=== PATIENT | male | born 1950 | race Caucasian/White ===

== ENCOUNTER 2016-04-28 16:00 | Inpatient (IN) | payer MEDICARE, OTHER ==
[~2016-04-28] VITALS: Ht 175.3 cm; Wt 70.7 kg
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
[~2016-04-28 16:00] MED LIST: APRESOLINE50 MG PO; CATAPRES0.1 MG PO; FEOSOL325 MG PO; FOLIC ACID1 MG PO; GLUCOTROL5 MG PO; LEVEMIR FL100 UNIT/1 SUB-Q; MAG-OX-400(241400 MG PO; NORVASC10 MG PO; NOVOLOG100 UNIT/M SUB-Q; PRILOSEC20 MG PO; THERAGRAN-M1 TAB PO; THIAMINE HCL100 MG PO; TRANDATE OR NO100 MG PO; TYLENOL325 MG PO; WELLBUTRIN SR150 MG PO; ZESTRIL40 MG PO; ZOCOR10 MG PO; ZOLOFT100 MG PO
[2016-04-28 18:23] LABS: BASOPHIL % 0.4 %; EOSINOPHIL # 0.3 K/uL (0.0-0.5); EOSINOPHIL % 3.1 %; HEMATOCRIT 43.5 % (37.0-53.0); HEMOGLOBIN 14.6 g/dL (11.0-16.0); IMMATURE GRANULOCYTE % 0.4 %; LYMPHOCYTE # 2.4 K/uL (0.8-4.0); MCH 34.7 pg (27.0-34.0); MCHC 33.6 gm/dL (32.0-36.5); MCV 103.3 fl (83.0-98.0); MONOCYTE # 0.9 K/uL (0.0-1.0); MONOCYTE % 9.3 %; NEUTROPHIL # (ANC) 5.5 K/uL (1.4-9.0); NEUTROPHIL % 60.8 %; NRBC % 0 /100WBC (0-0.00); RBC 4.21 M/uL (3.50-5.50); RDW-CV 12.8 % (11.9-14.6); WBC 9.1 K/uL (4.0-11.0)
[2016-04-28 18:25] LABS: PLATELET COUNT 262 K/uL (150-450)
[2016-04-28 18:36] LABS: PROTIME 10.2 SECONDS (9.6-11.1); PTT 27 SECONDS (25-32)
[2016-04-28 18:40] LABS: ALBUMIN 3.6 gm/dL (3.5-5.0); ALK PHOS 144 IU/L (33-138); ALT 37 IU/L (12-78); ANION GAP 14.8 (10.0-19.0); AST 21 IU/L (10-40); BLOOD UREA NITROGEN 17 mg/dL (6-24); CHLORIDE 103 mMol/L (96-110); CO2 24 mMol/L (22-32); ESTIMATED GFR (MDRD EQUATION) > 60; POTASSIUM 3.8 mMol/L (3.7-5.1); SODIUM 138 mMol/L (135-145); TOTAL PROTEIN 7.8 g/dL (6.0-8.4)
[2016-04-28 18:41] LABS: TOTAL BILIRUBIN 0.4 mg/dL (0.0-1.5)
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
--- NOTE | 2016-04-29 04:36 | NUR ---
Significant Event: Alert to self and . Disoriented to place and time. Moves all extremities spontaneously and to command. Left leg pain and weakness noted with movement. Upper extremitity moderate equal strength. Rates pain in 4-/6-7 range. Offered tylenol, patient declined multiple times. VSS on 1L of O2. Up 1 assist with gait belt. Takes meds whole. IV to right wrist saline locked. NPO at 5am for lumbar drain at 11am. IV fluids to start at 0500 this morning. Follow up:
--- NOTE | 2016-04-29 15:22 | NUR ---
Significant Event: PT ALERT TO SELF/BIRTHDAY. PERRLA. FOLLOWS COMMANDS. EQUAL STRENGTH X4. TRANSFERS WITH 1-2 ASSIST. COMPLAINS TO PAIN TO L)KNEE AT TIMES; HAS DENIED ANY NEED FOR PAIN MEDICATIONS THIS SHIFT. VOIDS PER BATHROOM. NO BM THIS SHIFT. AC/HS ACCUCHECKS WITH MILD SLIDING SCALE. BILATERAL CALF PUMPS ON. TAKES MEDICATIONS WHOLE IN WATER. IV TO R)WRIST INFUSING FLUIDS WITHOUT COMPLICATIONS. PLACED A LUMBAR DRAIN AT BEDSIDE AT 1130. DRESSING TO BACK INTACT; GOAL IS TO DRAIN 7 ML PER HOUR-KEEP SYSTEM CLAMPED UNLESS EMPTYING DRAIN. DRAINAGE IS CLEAR. IV ATIVAN GIVEN X1 PRIOR TO PROCEDURE THIS AM. NICOTINE PATCH APPLIED TO 1320 TO L)UPPER ARM. PT'S EX- LEFT THIS AFTERNOON. Follow up: CONTINUE TO MONITOR.
--- NOTE | 2016-04-30 05:03 | NUR ---
Significant Event: Patient alert to self and at all times. Patient alert to time and disoriented to place first and third assessment. Patient alert to place and dioriented to time second assessment. Denies numbness and tingling. Moves all extremities spontaneously and to command. Transfers 1-2 assist with gait belt. Complains of pain to left knee at times. Voids per bathroom. No BMs this shift. ACHS accuchecks mild sliding scale. Takes medications whole. IV to right wrist infusing NS at 75/hr. Dressing to back intact. Lumbar drain goal was increased to 10ml/hr. At 0230 patient got sudden headache. Blood pressure was also increased. Tylenol given with no relief. Dr. Whitfield notified and clamped lumbar drain. Order CT this am and diluadid for pain relief. Follow up: CT this am.
--- NOTE | 2016-04-30 18:01 | NUR ---
Significant Event: Alert and more oriented this shift. Room Air. SBP 150's and 170's. HR 60's & 70's. Pulled out lumbar drain this am. removed drain and scheduled surgery for a shunt tomorrow morning at 1100. CT scan tomorrow at 0400. Right wrist IV, flushes well, saline locked. Complaints of headache, dilaudid given X 2, last given at 1403. Headache gone now complains of a stiff neck. ACHS accu checks 232, 298 and 293. Up with 1 assist and gait belt. Pleasant and cooperative with cares Follow up:
--- NOTE | 2016-05-01 04:33 | NUR ---
Significant Event: Patient alert to self and . Disoriented to place and time. Transfers 1-2 assist. Compalins of pain. Denies numbness and tingling. No BMs this shift. Voids per bathroom. No BMs this shift. No complaints of headaches this shift. ACHS accuchecks moderate scale. Takes meds whole. IV to right wrist infusing NS at 75/hr. Dressing to back intact. NPO at midnight for HAIR CLIPPER POWER shunnt at [address] done. Surgery today to place HAIR CLIPPER POWER shunt at 1100. Bath complete. Cardiac diet. Follow up:
--- NOTE | 2016-05-01 17:03 | NUR ---
Significant Event:PT IS ALERT TO NAME AND . R) PUPIL IS 2 AND BRISK L) PUPIL IS 3 AND BRISK. NO NUMBNESS OR TINGLING. CLEAR LUNG SOUNDS ACTIVE BS. DRSGING NOTED TO BACK, C/D/I. DRSG TO HEAD HAS SOME MARKED DRAINAGED. DRSG TO ABDOMEN C/D/I. PT IS NOW CONFIDENTIAL. CODE WORD PINEAPPLE. PIV IN LEFT ARM. Follow up:MONITOR LOC NVS Q1H X 6.
--- NOTE | 2016-05-02 03:01 | NUR ---
Significant Event: Patient is alert and oriented to self, , and year. Denies pain, numbness, or tingling. Moves spontaneously and follows commands. Right hand grasp slightly weaker. Left leg slightly weaker. Right pupil 2 and brisk and left pupil 3 and brisk. VSS. Afebrile. On room air. Lungs clear. Bowel sounds active. No BM this shift. Voids per urinal without complications. Diabetic diet with good appetite. ACHS accucheks on moderate SSI. Dressing to head with marked drainage, dry and intact. Dressing to abdomen C/D/I. Confidential code word: pineapple. IV to left inner forearm SL with no complications. SCDs in place. Alarms at all times. HTN. Follow up: monitor neuro, ACHS accucheks, alarms at all times
[2016-05-02 05:04] LABS: BASOPHIL % 0.1 %; EOSINOPHIL # 0.1 K/uL (0.0-0.5); EOSINOPHIL % 0.7 %; HEMOGLOBIN 13.1 g/dL (11.0-16.0); IMMATURE GRANULOCYTE % 0.3 %; LYMPHOCYTE # 1.9 K/uL (0.8-4.0); LYMPHOCYTE % 17.6 %; MCHC 33.6 gm/dL (32.0-36.5); MCV 101.3 fl (83.0-98.0); MONOCYTE # 0.9 K/uL (0.0-1.0); MONOCYTE % 8.7 %; MPV 9.2 fl (9.4-12.4); NEUTROPHIL # (ANC) 7.8 K/uL (1.4-9.0); NEUTROPHIL % 72.6 %; NRBC % 0 /100WBC (0-0.00); PLATELET COUNT 274 K/uL (150-450); RBC 3.85 M/uL (3.50-5.50); RDW-CV 12.5 % (11.9-14.6); WBC 10.7 K/uL (4.0-11.0)
[2016-05-02 05:17] LABS: ALBUMIN 3.3 gm/dL (3.5-5.0); BLOOD UREA NITROGEN 13 mg/dL (6-24); CHLORIDE 104 mMol/L (96-110); CO2 22 mMol/L (22-32); CREATININE 1.1 mg/dL (0.6-1.3); ESTIMATED GFR (MDRD EQUATION) > 60; PHOSPHORUS 3.4 mg/dL (2.5-4.9); SODIUM 138 mMol/L (135-145)
[2016-05-02 05:18] LABS: ANION GAP 15.6 (10.0-19.0); MAGNESIUM 1.9 mg/dL (1.3-2.6); POTASSIUM 3.6 mMol/L (3.7-5.1)
--- NOTE | 2016-05-02 16:14 | NUR ---
Significant Event:VSS. Klonopin x 1 as prn for SBP 166/82. VS WNL rest of shift. Dilaudid 2mg x 2 po last dose at 1120 for c/o abdomen pain 4-09/04. Dsg to R posterior head is stapled/dry with old drainage, dsg to abdomen and lumbar back are CDI. Pt alert to self, disorientated to time/place. Follows commands, R pupil 2mm/L pupil 3mm reactive. L hand grasp weaker than R, gait steady with SBA of 1. PT/OT evals done, ST eval ordered for 05/03. Follow up:Possible placement, due to safety issues (per Hospitalist). CM updated about MD request.
--- NOTE | 2016-05-03 04:01 | NUR ---
Significant Event: Patient is alert and oriented to self and . Denies numbness or tingling. Has c/o abdominal pain r/t surgery-controlled with 4 mg of PO Dilaudid. Patient was very irritable for a while this shift r/t being in pain and not taking pain medications. Moves spontaneously and follows commands. Right hand grasp slightly weaker. Left leg slightly weaker. Right pupil 2 and brisk and left pupil 3 and brisk. VSS. Afebrile. On room air. Lungs clear. Bowel sounds active. No BM this shift. Voids per urinal without complications. Diabetic diet with good appetite. ACHS accucheks on moderate SSI. Dressing to head with marked drainage, dry and intact. Dressing to abdomen and back C/D/I. Confidential code word: pineapple. IV to left inner forearm was red and firm at beginning of shift. New IV started to right inner forearm, 20 g with good blood return. SCDs in place. Alarms at all times. HTN-no PRNs needed. Scattered scabs. Follow up: monitor neuro, ACHS accucheks, alarms at all times, pain management
--- NOTE | 2016-05-03 10:50 | NUR ---
1040 Tried to call Dejan's ex-/POA Linda to discuss discharge plans/options with her. She didn't answer and her phone didn't allow me to leave a VM. I let [facility] floor know that if she called, to please forward the phone call to me so we could talk about discharge. I will try to call her back later this afternoon if I haven't heard from her by that time. Will continue to follow and assist.
--- NOTE | 2016-05-03 11:39 | NUR ---
A - PT SCREENED D/T LOS. A/O TO SELF. HT: 69: WT: 160# BMI: 23.0 LABS: ACCUCHECK REAS->200, K+ 3.6, GLU 219, ALB 3.3 MEDS: SSI, LEVEMIR, PROTONIX, FOLIC ACID, THIAMINE, GLIPIZIDE DIET: DIABETIC. INTAKE: MOSTLY 75-100% NEEDS: 2485-7070 KCAL (25-30 KCAL/KG), 58-73 G PRO (0.8-1 G/KG), 2190 ML FLUID (30 ML/KG) D - NO NUTRITION RELATED DIAGNOSIS IDENTIFIED AT THIS TIME I - GOAL FOR INTAKE TO REMAIN 75-100% FOR DURATION OF STAY. M/E - WILL ASSIST NEEDED.
--- NOTE | 2016-05-03 13:20 | NUR ---
Significant Event: PT ALERT TO SELF AND BIRTHDAY. HAS BEEN PLEASANTLY CONFUSED THIS SHIFT. L)PUPIL IS 3.0 MM/BRISK; R)PUPIL IS 2.0 MM/BRISK. FOLLOWS COMMANDS. R)HAND GRASP REMAINS WEAKER THAN L)GRASP. L)LEG IS WEAKER DUE TO BEING SORE POST-FALL AT HOME (PRIOR TO ADMIT). TRANSFERS WITH STAND-BY ASSIST/GAIT BELT. VOIDS PER BATHROOM. AMBULATED IN THE [place]ETT WITH PHYSICAL THERAPY. DRESSING TO ABDOMEN IS CLEAN/DRY/INTACT; DRESSING TO HEAD IS STAPLED/OLD DRAINAGE NOTED. DRESSING TO LUMBAR BACK IS CLEAN/DRY/INTACT. AC/HS ACCUCHECKS WITH MODERATE SLIDING SCALE. BILATERAL CALF PUMPS ON. IV TO R)INNER ARM SALINE LOCKED. SCHEDULED IV THIAMINE. GOOD APPETITE. LAST BM ON 04/29; PT STATES THAT HE FEELS UNCOMFORTABLE AND FEELS LIKE HE NEEDS TO HAVE A BM. PASSING FLATUS. ORDER FOR SCHEDULED MIRALAX DAILY; NO RESULTS YET. PO DILAUDID1 TAB GIVEN AT 1108 FOR COMPLAINTS OF HEAD/ABDOMEN/INCISIONAL PAIN, WITH RELIEF. Follow up: HOME SOON WITH HOME HEALTH VS.PLACEMENT?
--- NOTE | 2016-05-04 05:23 | NUR ---
Significant Event: Patient is alert and oriented to self. Forgetful and impulsive at times. VSS. PERRLA. SR- keep SBP less than 150. Room air- lungs are clear. Diabetic diet-accu checks ACHS. Last Bm 05/03. Up with SBA and GB. PIV right inner FA- saline locked when not running meds. Dressings to the right occiput, abd, and sutures to midline of lower back. Takes pills whole with water. Denies pain. Denies N/T. VSS. Follow up: Monitor blood glucose levels. Alarms on at all times.
--- NOTE | 2016-05-04 10:15 | NUR ---
09 Came up to [facility] floor, MEGHA Cochran states that ex-, Linda called last night and requested that I call and update her on discharge plans for Dejan. I let RN Sammie know that I tried to call her twice yesterday with no answer and no call back, but I will try again today to reach her. [phone] Called to ex- Linda off [facility] floor phone to try to talk with her about discharge. No answer, couldn't leave [facility] as it was not set up. Let [facility] staff know that if she calls up to the floor at any point and time, to please forward her to me so we can talk. Will keep attemting to call her today to talk with her.
--- NOTE | 2016-05-04 15:14 | NUR ---
Significant Event:PT IS ALERT TO SELF AND . PUPILS ARE EQUAL AND REACTIVE. NO C/O NUMBNESS OR TINGLING. EQUAL STRENGTH THROUGHOUT. CLEAR LUNG SOUNDS ON RA. ACTIVE BS. DRSG TO R) OCCIPITAL AND LOWER ABD. R) FA PIV. UP SBA. ACHS ACCUCHECKS. HELD SOME BLOOD PRESSURE MEDS THIS AM. PRESSURE GOT DOWN TO 83/54 GAVE 500 ML BOLUS. BP STABLE NOW. BLOOD SUGAR WAS 68 THIS AM. HELD GLUCATROL AND AM LEVEMIR. Follow up:MONITOR BP AND PULSE
--- NOTE | 2016-05-05 04:43 | NUR ---
Significant Event: PATIENT IS ALERT AND ORIENTED TO PERSON AND PLACE DURING LAST ASSESSMENT. VSS. FOLLOWS COMMANDS. FORGETFUL. PERRLA. DENIES PAIN. DENIES N/T. DENIES THOMPSON. IMPULSIVE AT TIMES. SINUS RHYTHM. KEEP SBP LESS THAN 150. ROOM AIR. DIABETIC DIET-ACCU CHECKS ACHS-SNACK GIVEN THIS AM. LAST BM 05/04-BOWELS ARE ACTIVE. SBA. RIGHT INNER FA PIV-SL'D, TENDER WHEN FLUSHED. JC TO RIGHT OCCIPUT-OPEN TO AIR. ABD DRESSING C/D/I. LUMBAR DRAIN SITE WITH SUTURE- INTACT-OPEN TO AIR. Follow up: DISCHARGE IN THE NEXT DAY OR TWO.
--- NOTE | 2016-05-05 16:07 | NUR ---
Significant Event: Patient alert to self only. Forgetful, impulsive. Pupils 3mm, brisk. Follows commands. Denies numbness/tingling. VSS, on room air. Orders to keep SBP <150. Voids per bathroom. BM today. [place] dressing to abdomen. Surgical incision to R) posterior head, elaina in place, open to air. Suture to lumbar back. IV to R) FA, saline locked. Follow up: VS/neuros q 4 hours. Up with SBA. ADA diet, AC/HS accucheks. Home tomorrow.
--- NOTE | 2016-05-06 04:03 | NUR ---
Significant Event: Alert to self, follows commands and moves spontaneously. PERRLA 3mm brisk. Systolic 140's, HR 70's. L.S. clear throughout on RA. B.S. active, C/O tenderness with palpation occasionally, last BM 05/05. Urinates per SBA to BR with gait belt no complications. PIV R) forearm SL'd. Accuchecks AC/HS, 2 units needed last noc with 20 scheduled Levemir. Dressing to abdomen C/D/I, incisional site to head open to air. No complaints of pain, N/T or blurred vision. Follow up: Home today
[2016-05-06] MEDS ORDERED: GLUCOPHAGE500 MG PO (11:40)
[2016-05-06] MEDS ORDERED: NICOTINE PATCH1 EAC1 TRANS (11:43)
[2016-05-06] MEDS ORDERED: PROTONIX40 MG PO (11:44)
[2016-05-06] MEDS ORDERED: CARDIZEM CD (T300 MG PO (11:49)
[2016-05-06] MEDS ORDERED: HYDROCODONE-IB1 EAC2 PO (11:49)
[2016-05-06] MEDS ORDERED: TRADJENTA5 MG PO (11:49)
[2016-05-06] MEDS ORDERED: CATAPRES0.2 MG PO (11:49)
--- NOTE | 2016-05-06 18:56 | NUR ---
Significant Event: Patient discharged to home at 1330. Left [facility] per w/c accompanied by [employer]ATION HELPER. To be driven home per private vehicle by . will provide cares along with home health services. orders faxed to home health. a/o to person. very confused conversationally. does get agitated at times about wanting to leave. equal strength throughout. takes meds whole. accuchecks ac/hs. continues to c/o left knee pain that was noted on admission. prn tylenol prior to discharge for pain management and rest for comfort.
== END 2016-05-06 13:52 | disposition disaster alternative care site (69) | DRG 31 ==
LOC: GNTU 17:01
PROVIDERS: Physician Assistant; ADMIT Neurological Surgery
PROC: 00160J6 Bypass Cerebral Ventricle to Peritoneal Cavity with Synthetic Substitute, Open Approach (ICD-10-PCS; principal; 2016-05-06)
DX: G91.3 Post-traumatic hydrocephalus, unspecified (principal); I62.03 Nontraumatic chronic subdural hemorrhage; I10 Essential (primary) hypertension; E11.9 Type 2 diabetes mellitus without complications; F17.210 Nicotine dependence, cigarettes, uncomplicated; F10.10 Alcohol abuse, uncomplicated; Z91.14 Patient's other noncompliance with medication regimen; Z87.81 Personal history of (healed) traumatic fracture
CPT/HCPCS: A9270; J0690; J1100; J2001; J2060; J2250; J2405; J3411; J7030; J7040; J7050

== ENCOUNTER → 2016-05-16 | Outpatient (CLI) | payer MEDICARE, OTHER ==
[~2016-05-16] MED LIST changes: +CARDIZEM CD (T300 MG PO; +CATAPRES0.2 MG PO; +GLUCOPHAGE500 MG PO; +HYDROCODONE-IB1 EAC2 PO; +NICOTINE PATCH1 EAC1 TRANS; +PROTONIX40 MG PO; +TRADJENTA5 MG PO
== END | disposition disaster alternative care site (69) ==
LOC: GRAD 08:58
DX: G91.0 Communicating hydrocephalus (principal); I51.7 Cardiomegaly

== ENCOUNTER → 2016-09-05 | Outpatient (CLI) | payer MEDICARE, OTHER | END | disposition disaster alternative care site (69) | LOC: GRAD 12:20 | DX: G91.0 Communicating hydrocephalus (principal); Z98.2 Presence of cerebrospinal fluid drainage device ==